=== PATIENT | male | born 1995 | race Caucasian/White ===

== ENCOUNTER 2016-11-11 12:55 | Emergency (ER) | payer BC ==
[~2016-11-11] VITALS: Ht 162.6 cm; Wt 70.0 kg
[2016-11-11] MEDS ORDERED: diphenhydrAMINE HCL 50 MG/ML VIAL ONE (13:01)
[2016-11-11] MEDS ORDERED: HALOPERIDOL LACTATE 5 MG/ML AMP ONE (13:02)
[2016-11-11] MEDS ORDERED: LORazepam 2 MG/ML VIAL ONE (13:02)
[2016-11-11 13:08] VITALS: BP 119/73; PULSE 110; RESP 20; O2SAT 100
[2016-11-11] MEDS ORDERED: LORazepam 2 MG/ML VIAL IM ONE (13:15)
[2016-11-11] MEDS ORDERED: diphenhydrAMINE HCL 50 MG/ML VIAL IM ONE (13:15)
[2016-11-11] MEDS ORDERED: HALOPERIDOL LACTATE 5 MG/ML AMP IM ONE (13:15)
[2016-11-11 13:57] LABS: AUTOMATED NEUTROPHIL # 2.5 TH/MM3 (1.8-7.7); BASOPHIL % 0.7 % (0.0-2.0); EOSINOPHIL % 0.5 % (0.0-4.0); HEMATOCRIT 41.1 % (39.0-51.0); HEMO FLAGS DIFF FINAL; LYMPH % 25.2 % (9.0-44.0); MEAN CELL VOLUME 96.7 FL (80.0-100.0); MEAN CORPUSCULAR HEMOGLOBIN 32.7 PG (27.0-34.0); MEAN CORPUSCULAR HGB CONC 33.8 % (32.0-36.0); MONO % 10.4 % (0.0-8.0); NEUT % 63.2 % (16.0-70.0); PLATELET COUNT 195 TH/MM3 (150-450); RED BLOOD COUNT 4.25 MIL/MM3 (4.50-5.90); RED CELL DISTRIBUTION WIDTH 12.6 % (11.6-17.2)
[2016-11-11 14:19] LABS: ALT (GPT) 25 U/L (12-78)
[2016-11-11 14:20] LABS: ALKALINE PHOSPHATASE 54 U/L (45-117); TOTAL BILIRUBIN ADULT 0.4 MG/DL (0.2-1.0)
[2016-11-11] MEDS ORDERED: PENT400T PO (14:20)
[2016-11-11] MEDS ORDERED: PAXI20TA10 (14:20)
[2016-11-11] MEDS ORDERED: [UNRECOGNIZED DRUG - OTHER] (14:20)
[2016-11-11] MEDS ORDERED: BACL10TA PO (14:20)
[2016-11-11] MEDS ORDERED: ALPR.5 PO (14:20)
[2016-11-11] MEDS ORDERED: [UNRECOGNIZED DRUG - OTHER] (14:20)
[2016-11-11] MEDS ORDERED: TERA2CAP3 PO (14:20)
[2016-11-11 14:31] LABS: ANION GAP 7 MEQ/L (5-15); AST (GOT) 30 U/L (15-37); BICARBONATE 24.6 MEQ/L (21.0-32.0); BLOOD UREA NITROGEN 20 MG/DL (7-18); CHLORIDE 109 MEQ/L (98-107); GLOMERULAR FILTRATION RATE 107 ML/MIN (>89); POTASSIUM 3.7 MEQ/L (3.5-5.1); SODIUM (NA) 141 MEQ/L (136-145)
[2016-11-11 14:33] LABS: ALCOHOL LESS THAN 3 MG/DL (0-5)
--- NOTE | 2016-11-11 14:33 | PD ---
HPI Chief Complaint: Psychiatric Symptoms Time Seen by Provider: 13:02 Travel History International Travel<30 days: No Contact w/Intl Traveler<30days: No Traveled to known affect area: No History of Present Illness HPI This is a 21-year-old male who presents to the emergency department with a history of autism having gotten frustrated in a store, getting combative, trying and she can kick his mother, and difficult to control for police, constant, severe. Police placed him under a Ramirez act due to his behavior. His mom reports that he's been having increasing behavioral outbursts over the past several months. She spoke to her neurologist in [place] about it and he prescribed him 0.5 of Xanax which she's been trying to give him but she doesn't think it's helping. PFSH Past Medical History Psychiatric: Yes (AUTISTIC ) Social History Alcohol Use: No Tobacco Use: No Substance Use: No Allergies-Medications (Allergen,Severity, Reaction): Coded Allergies: No Known Drug Allergies (Verified Allergy, Unknown, 11/11/16) casein (Verified Adverse Reaction, Severe, 11/11/16) gluten (Verified Adverse Reaction, Severe, 11/11/16) soy (Verified Adverse Reaction, Severe, 11/11/16) Reported Meds & Prescriptions Reported Meds & Active Scripts Active Reported Xanax (Alprazolam) 0.5 Mg Tab 0.5 Mg PO Terazosin (Terazosin HCl) 2 Mg Cap 4 Mg PO HS Paxil (Paroxetine HCl) 20 Mg Tablet 20 Mg DAILY [Natrexone] 50 Mg BID Baclofen 10 Mg Tab 10 Mg PO BID PRN Pentoxifylline ER (Pentoxifylline) 400 Mg Tab 400 Mg PO BID [Cypoheptadinem] 40 Mg BID Review of Systems ROS Limitations: Clinical Condition Physical Exam Narrative GENERAL: Agitated, screaming, aching and hitting SKIN: Focused skin assessment warm and dry. HEAD: Atraumatic. Normocephalic. EYES: Pupils equal and round. No injection or drainage. ENT: Moist mucous membranes NECK: Trachea midline. CARDIOVASCULAR: Regular rate and rhythm. No murmur appreciated. RESPIRATORY: Clear to auscultation. Breath sounds equal bilaterally. GASTROINTESTINAL: Abdomen soft, non-tender, nondistended. MUSCULOSKELETAL: No obvious deformities. NEUROLOGICAL: Awake and alert. No obvious cranial nerve deficits. Moving all extremities. Data Data Last Documented VS Vital Signs Date Time Temp Pulse Resp B/P (MAP) Pulse Ox O2 Delivery O2 Flow Rate FiO2 11/11/16 13:08 110 20 119/73 (88) 100 Orders Orders Diphenhydramine Inj (Benadryl Inj) (11/11/16 13:01) Haloperidol Inj (Haldol Inj) (11/11/16 13:02) Lorazepam Inj (Ativan Inj) (11/11/16 13:02) Complete Blood Count With Diff (11/11/16 13:02) Comprehensive Metabolic Panel (11/11/16 13:02) ^ Insert Iv (11/11/16 13:02) Alcohol (Ethanol) (11/11/16 13:02) Lorazepam Inj (Ativan Inj) (11/11/16 13:15) Diphenhydramine Inj (Benadryl Inj) (11/11/16 13:15) Haloperidol Inj (Haldol Inj) (11/11/16 13:15) Restraints Violent (11/11/16 14:36) Labs Laboratory Tests Test 11/11/16 13:40 White Blood Count 4.0 TH/MM3 Red Blood Count 4.25 MIL/MM3 Hemoglobin 13.9 GM/DL Hematocrit 41.1 % Mean Corpuscular Volume 96.7 FL Mean Corpuscular Hemoglobin 32.7 PG Mean Corpuscular Hemoglobin Concent 33.8 % Red Cell Distribution Width 12.6 % Platelet Count 195 TH/MM3 Mean Platelet Volume 8.4 FL Neutrophils (%) (Auto) 63.2 % Lymphocytes (%) (Auto) 25.2 % Monocytes (%) (Auto) 10.4 % Eosinophils (%) (Auto) 0.5 % Basophils (%) (Auto) 0.7 % Neutrophils # (Auto) 2.5 TH/MM3 Lymphocytes # (Auto) 1.0 TH/MM3 Monocytes # (Auto) 0.4 TH/MM3 Eosinophils # (Auto) 0.0 TH/MM3 Basophils # (Auto) 0.0 TH/MM3 CBC Comment DIFF FINAL Differential Comment Blood Urea Nitrogen 20 MG/DL Creatinine 0.90 MG/DL Random Glucose 86 MG/DL Total Protein 7.5 GM/DL Albumin 3.7 GM/DL Calcium Level 8.6 MG/DL Alkaline Phosphatase 54 U/L Aspartate Amino Transf (AST/SGOT) 30 U/L Alanine Aminotransferase (ALT/SGPT) 25 U/L Total Bilirubin 0.4 MG/DL Sodium Level 141 MEQ/L Potassium Level 3.7 MEQ/L Chloride Level 109 MEQ/L Carbon Dioxide Level 24.6 MEQ/L Anion Gap 7 MEQ/L Estimat Glomerular Filtration Rate 107 ML/MIN Ethyl Alcohol Level LESS THAN 3 MG/DL MDM Medical Decision Making Medical Screen Exam Complete: Yes Emergency Medical Condition: Yes Interpretation(s) No leukocytosis Electrolytes are reassuring Alcohols less than 3 Differential Diagnosis Autism, behavioral disturbance, psychosis, substance intoxication Narrative Course This is a 21-year-old male who has a history of autism who presents to the emergency department having had a behavioral outburst at a supermarket. He was being violent towards mother and ultimately police got involved and brought him in under a Ramirez act. Patient was very agitated when he arrived and kicked staff members. He had to be restrained both physically and chemically. He became increasingly cooperative. Patient doesn't meet Ramirez act criteria. Autism does not meet criteria of a mental illness. I can't hold this patient against his mother's will. I lifted the Ramirez act. I did speak to the on-call psychiatrist regarding suggestions for further behavioral management of this patient. He recommended Abilify which the family is amenable to. I had a long conversation with the patient's mother. She was initially planning to fly home on an airplane tomorrow. I explicitly told the family that I did not recommend they get on the airplane. I think it would be unsafe for the patient and if he had a behavioral outburst it could be misunderstood and he could end up arrested or be perceived as a threat to other passengers. His mother agreed and she promised me that she would not fly, she would drive. She is going to have her fly down from [place] and they will drive together back home. We will add Abilify to the patient's medication and she was also told that she can use Benadryl as needed for sedation. Family was appreciative for the time taken with them. Diagnosis Primary Impression: Autistic behavior Patient Instructions: General Instructions Additional Instructions: If you at all feel unsafe return to the emergency department. Do not fly home with Abhishek, it would be much safer to drive. Med/Other Pt SpecificInfo: Prescription(s) given Scripts Aripiprazole (Abilify) 10 Mg Tab 10 MG PO DAILY, #30 TAB 0 Refills Prov: Kelsey Franks MD 11/11/16 Disposition: 01 DISCHARGE HOME Condition: Stable Kelsey Franks MD Nov 11, 2016 14:33
[2016-11-11] MEDS ORDERED: ARIP1TAB5 PO (16:11)
[2016-11-15] MEDS ORDERED: NALT50TA3 PO (11:08)
== END 2016-11-11 17:16 | disposition home or self-care (01) ==
LOC: NEPE 12:55
DX: F84.0 Autistic disorder (principal); Z79.899 Other long term (current) drug therapy
CPT/HCPCS: 80053; 80307; 85025; 99285; J1200; J1630; J2060